=== PATIENT | male | born 1975 | race Two or more races ===

== ENCOUNTER 2024-05-22 08:26 | Emergency (ER) | payer OTHER ==
[~2024-05-22] VITALS: Ht 172.7 cm; Wt 89.8 kg
[2024-05-22] MEDS ORDERED: DEXAMETHASONE SODIUM PHOSPHATE 4 MG/ML VIAL IM STA (09:12)
[2024-05-22] MEDS ORDERED: CETIRIZINE HCL 5 MG/5 ML ML PO STA (09:12)
[2024-05-22] MEDS ORDERED: CODEINE PHOSPHATE/GUAIFENESIN 5 ML ML PO STA (09:12)
[2024-05-22] MEDS ORDERED: GUAIFENESIN 200 MG/10 ML BLIST.PACK PO ONE (09:25)
[2024-05-22] MEDS ORDERED: CETIRIZINE HCL 5MG/5ML BLIST.PACK PO ONE (09:25)
[2024-05-22 10:11] LABS: HEMATOCRIT 43.3 % (39.0-48.0); HEMOGLOBIN 14.8 g/dL (13-16.00); MEAN CELL VOLUME 81.4 fL (80.0-100.00); MEAN CORPUSCULAR HEMOGLOBIN 27.8 pg (27.00-32.0); MEAN CORPUSCULAR HGB CONC 34.1 g/dl (32.0-36.0); PLATELET COUNT 231 K/uL (150-450); RED BLOOD COUNT 5.31 M/uL (4.00-6.00); RED CELL DISTRIBUTION WIDTH 14.4 % (11.5-14.5)
[2024-05-22] MEDS ORDERED: MEDROLPACK PO (10:58)
[2024-05-22] MEDS ORDERED: PAIN RELIEVER500 MG PO (10:58)
[2024-05-22] MEDS ORDERED: ALLER-TEC10 MG PO (10:58)
[2024-05-22] MEDS ORDERED: AZITHROMYCIN500 MG PO (10:58)
[2024-05-22] MEDS ORDERED: MUCINEX DM ER1 EAC1 PO (11:01)
[2024-05-22] MEDS ORDERED: AZITHROMYCIN 500 MG TABLET PO STA (11:02)
[2024-05-22] MEDS ORDERED: AZITHROMYCIN 500 MG TABLET PO ONE (11:11)
== END 2024-05-22 11:32 | disposition home or self-care (01) ==
LOC: ER 08:29
PROVIDERS: General Practice
DX: J32.9 Chronic sinusitis, unspecified (principal); J06.9 Acute upper respiratory infection, unspecified; Z20.822 Contact with and (suspected) exposure to COVID-19